=== PATIENT | female | born 1980 | race Two or more races ===

== ENCOUNTER 2016-09-18 22:01 | Emergency (ER) | payer MEDICAID ==
[~2016-09-18] VITALS: Ht 157.5 cm; Wt 81.4 kg
[~2016-09-18 22:01] MED LIST: CITA40TA12 PO; HYDR25CA PO
[2016-09-18 22:03] VITALS: BP 130/86
== END 2016-09-19 00:02 | disposition left against medical advice (07) ==
LOC: ED 23:59
DX: M54.6 Pain in thoracic spine (principal)
CPT/HCPCS: 72072; 99284

== ENCOUNTER 2020-12-07 11:06 | Outpatient (CLI) | payer MEDICAID | END 2020-12-07 23:59 | disposition home or self-care (01) | LOC: RAD 11:06 | PROVIDERS: ATTEND Family Medicine | DX: N83.292 Other ovarian cyst, left side (principal); N83.291 Other ovarian cyst, right side; R10.2 Pelvic and perineal pain | CPT/HCPCS: 76830 ==